=== PATIENT | male | born 1980 | race Caucasian/White ===

== ENCOUNTER 2018-04-02 10:18 | Emergency (ER) | payer OTHER ==
[~2018-04-02] VITALS: Ht 170.2 cm; Wt 76.7 kg
[2018-04-02 10:30] VITALS: Ht 170.2 cm; Wt 76.7 kg
[2018-04-02 11:12] VITALS: BP 128/70
== END 2018-04-02 11:12 | disposition home or self-care (01) ==
LOC: ED 10:18
DX: L03.116 Cellulitis of left lower limb (principal); Z91.030 Bee allergy status
CPT/HCPCS: J3490

== ENCOUNTER 2018-12-31 09:16 | Emergency (ER) | payer OTHER ==
[~2018-12-31] VITALS: Ht 170.2 cm; Wt 75.3 kg
[2018-12-31 09:23] VITALS: Ht 170.2 cm; Wt 75.3 kg
[2018-12-31 10:08] VITALS: BP 132/87
== END 2018-12-31 10:08 | disposition home or self-care (01) ==
LOC: ED 09:16
DX: H10.89 Other conjunctivitis (principal); Z91.030 Bee allergy status

== ENCOUNTER 2019-07-11 09:26 | Emergency (ER) | payer OTHER ==
[~2019-07-11] VITALS: Ht 170.2 cm; Wt 76.2 kg
[2019-07-11 10:14] VITALS: BP 132/88; Ht 170.2 cm; Wt 76.2 kg
== END 2019-07-11 14:40 | disposition home or self-care (01) ==
LOC: ED 09:26
DX: T16.2XXA Foreign body in left ear, initial encounter (principal); H66.93 Otitis media, unspecified, bilateral; Z91.030 Bee allergy status; W45.8XXA Other foreign body or object entering through skin, initial encounter; Y93.89 Activity, other specified; Y92.89 Other specified places as the place of occurrence of the external cause; Y99.8 Other external cause status